=== PATIENT | female | born 1955 | race Caucasian/White ===

== ENCOUNTER 2022-03-18 10:58 | Emergency (ER) | payer OTHER ==
[~2022-03-18] VITALS: Ht 165.1 cm; Wt 86.4 kg
[~2022-03-18 10:58] MED LIST: AMLO-257 PO; DSS100 PO; HYDR25TA2 PO; IBUPROFEN PO; INSLAN SQ; INSREG SQ; PERCT PO
[2022-03-18] MEDS ORDERED: ISOS30TA92 PO (11:12)
[2022-03-18] MEDS ORDERED: SEVE800T17 PO (11:12)
[2022-03-18] MEDS ORDERED: FLUT16SP NASAL (11:12)
[2022-03-18] MEDS ORDERED: CARV25 PO (11:12)
[2022-03-18] MEDS ORDERED: ALBU8HFA IH ×2 (11:12→15:18)
[2022-03-18] MEDS ORDERED: ATOR40TA28 PO (11:12)
[2022-03-18 11:21] LABS: COVID AG,FIA SOURCE NASAL SWAB
[2022-03-18 12:03] LABS: INFLUENZA TYPE A NEGATIVE FOR TYPE A (NEGATIVE); INFLUENZA TYPE B NEGATIVE FOR TYPE B (NEGATIVE)
[2022-03-18 12:50] VITALS: BP 185/74
[2022-03-18 13:15] LABS: BASOPHILS % (AUTO) 1.4 % (0.0-2.0); EOSINOPHILS % (AUTO) 9.3 % (1.0-6.0); HEMOGLOBIN 10.9 g/dL (12.0-16.0); LYMPHOCYTES # (AUTO) 1.1 K/uL (1.0-4.8); MEAN CORPUSCULAR HEMOGLOBIN 33.9 pg (26.0-34.0); MEAN CORPUSCULAR HGB CONC 34.2 G/dL (31.0-37.0); MEAN CORPUSCULAR VOLUME 99 fL (80-100); MONOCYTES # (AUTO) 0.5 K/uL (0.1-1.0); MONOCYTES % (AUTO) 5.9 % (2.0-9.0); NEUTROPHILS # (AUTO) 6.1 K/uL (1.8-7.7); NEUTROPHILS % (AUTO) 70.4 % (40.0-70.0); PLATELET COUNT (AUTO) 184 K/uL (150-450); RED BLOOD CELL COUNT(AUTO) 3.23 MIL/uL (4.00-5.20); RED CELL DISTRIBUTION WIDTH 16.7 % (11.5-14.5)
[2022-03-18 13:28] LABS: CALCIUM, TOTAL 10.2 mg/dL (8.8-10.5); CREATININE 6.16 mg/dL (0.60-1.30); POTASSIUM 4.6 mmol/L (3.5-5.1)
[2022-03-18 13:36] LABS: ALBUMIN 3.6 g/dL (3.4-5.0); BILIRUBIN,TOTAL 0.5 mg/dL (0.1-1.0); TOTAL PROTEIN, SERUM 8.7 g/dL (6.4-8.2)
[2022-03-18] MEDS ORDERED: IPRATROPIUM BROMIDE 0.5 MG/2.5 ML NEB SOLUTION NEB ONE (14:00)
[2022-03-18] MEDS ORDERED: ALBUTEROL SULFATE 2.5 MG/0.5 ML NEB SOLUTION NEB ONE (14:00)
== END 2022-03-18 15:51 | disposition home or self-care (01) ==
LOC: EMS 11:16
DX: J45.909 Unspecified asthma, uncomplicated (principal); E11.9 Type 2 diabetes mellitus without complications; I10 Essential (primary) hypertension; Z98.890 Other specified postprocedural states; Z20.822 Contact with and (suspected) exposure to COVID-19
CPT/HCPCS: 71045; 80053; 84484; 85025; 87420; 87804; 93005; 94640; 99285; 36415-L1; 36415-TC; J7613

== ENCOUNTER 2023-04-06 10:58 | Emergency (ER) | payer OTHER ==
[~2023-04-06] VITALS: Ht 154.9 cm; Wt 82.7 kg
[~2023-04-06 10:58] MED LIST changes: +ALBU18HF12 IH; +ATOR40TA28 PO; +CARV25 PO; -DSS100 PO; +FLUT16SP NASAL; +ISOS30TA92 PO; +SEVE800T38 PO
[2023-04-06 11:22] VITALS: TEMP 98.3
[2023-04-06 12:21] LABS: BASOPHILS % (AUTO) 0.7 % (0.0-2.0); EOSINOPHILS % (AUTO) 1.7 % (1.0-6.0); HEMATOCRIT 31.7 % (36-46); HEMOGLOBIN 10.9 g/dL (12.0-16.0); LYMPHOCYTES # (AUTO) 0.8 K/uL (1.0-4.8); LYMPHOCYTES % (AUTO) 10.6 % (22.0-44.0); MEAN CORPUSCULAR HEMOGLOBIN 33.4 pg (26.0-34.0); MEAN CORPUSCULAR HGB CONC 34.2 G/dL (31.0-37.0); MEAN CORPUSCULAR VOLUME 98 fL (80-100); MONOCYTES # (AUTO) 0.3 K/uL (0.1-1.0); NEUTROPHILS # (AUTO) 6.2 K/uL (1.8-7.7); PLATELET COUNT (AUTO) 179 K/uL (150-450); RED BLOOD CELL COUNT(AUTO) 3.26 MIL/uL (4.00-5.20); RED CELL DISTRIBUTION WIDTH 15.5 % (11.5-14.5); WHITE BLOOD COUNT (AUTO) 7.4 K/uL (4.5-11.0)
[2023-04-06 12:29] LABS: CALCIUM, TOTAL 10.3 mg/dL (8.8-10.5); CREATININE 5.86 mg/dL (0.60-1.30); POTASSIUM 3.8 mmol/L (3.5-5.1)
[2023-04-06 12:36] LABS: ALBUMIN 3.9 g/dL (3.4-5.0); BILIRUBIN,TOTAL 0.5 mg/dL (0.1-1.0); TOTAL PROTEIN, SERUM 8.6 g/dL (6.4-8.2); TROPONIN I-HIGH SENSITIVITY 43 ng/L (<51)
[2023-04-06] MEDS ORDERED: SODIUM PHOSPHATE,MONO-DIBASIC 133 ML ENEMA PR ONE (15:45)
[2023-04-06 17:12] VITALS: BP 139/77; PULSE 76; RESP 16
[2023-04-06] MEDS ORDERED: POLY17PO PO (17:42)
== END 2023-04-06 18:53 | disposition home or self-care (01) ==
LOC: EMS 11:07
DX: K59.00 Constipation, unspecified (principal); E11.9 Type 2 diabetes mellitus without complications; I10 Essential (primary) hypertension; Z98.890 Other specified postprocedural states
CPT/HCPCS: 74022; 80053; 82962; 83690; 84484; 85025; 93005; 99285